=== PATIENT | female | born 1985 | race Caucasian/White ===

== ENCOUNTER 2021-02-15 22:18 | Outpatient (REF) | payer BC, SELFPAY ==
[2021-02-17 11:37] LABS: COVID-19 RT-PCR UVMMC Result Negative (Negative)
== END 2021-02-15 22:19 | disposition home or self-care (01) ==
LOC: LBN 22:18
PROVIDERS: PCP Nurse Practitioner Adult Health; Visit Provider Physician Assistant Medical
DX: J02.9 Acute pharyngitis, unspecified (principal); Z20.822 Contact with and (suspected) exposure to COVID-19; J06.9 Acute upper respiratory infection, unspecified
CPT/HCPCS: U0003; 87070

== ENCOUNTER 2021-08-10 14:19 | Outpatient (REF) | payer BC, SELFPAY | END 2021-08-10 14:20 | disposition home or self-care (01) | LOC: NCHCN 14:19 | PROVIDERS: PCP Nurse Practitioner Adult Health; Visit Provider Nurse Practitioner Family | DX: R30.0 Dysuria (principal) | CPT/HCPCS: 87086 ==

== ENCOUNTER 2023-11-24 17:08 | Emergency (ER) | payer OTHER, SELFPAY ==
[2023-11-24 17:19] VITALS: BP 130/87; PULSE 79; RESP 17; TEMP 37.1; O2SAT 99
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
[2023-11-24] MEDS: Ibuprofen 600 MG TAB PO (18:17)
[2023-11-24] MEDS: Acetaminophen 500 MG TAB 1000 MG PO (18:17)
[2023-11-24] MEDS: Tetracaine 0.5% 4 ML BTL (18:18)
[2023-11-24 18:22] VITALS: PULSE 80; RESP 16; O2SAT 98
== END 2023-11-24 18:29 | disposition home or self-care (01) ==
LOC: ER 18:14
PROVIDERS: Emergency Provider Emergency Medicine
DX: M25.561 Pain in right knee (principal); M25.511 Pain in right shoulder; R51.9 Headache, unspecified; R11.0 Nausea; H57.11 Ocular pain, right eye; V48.5XXA Car driver injured in noncollision transport accident in traffic accident, initial encounter
CPT/HCPCS: 76604; 99282; 99283

== ENCOUNTER 2024-06-03 12:26 | Outpatient (REF) | payer BC, SELFPAY ==
[2024-06-03 15:38] LABS: Abs Immature Grans 0.03 10^3/uL (0.0-0.06); Absolute Basophil Count 0.05 10^3/uL (0.0-0.2); Absolute Eosinophil Count 0.19 10^3/uL (0.0-0.7); Absolute Lymphocyte Count 2.58 10^3/uL (1.2-3.4); Absolute Monocyte Count 0.43 10^3/uL (0.1-0.8); Absolute Neutrophil Count 4.21 10^3/uL (1.2-6.7); Basophils % 0.7 %; Eosinophils % 2.5 %; HGB 13.7 g/dL (11.2-15.7); Immature Grans % 0.4 %; Lymphocytes % 34.4 %; MCH 32.9 pg (27.0-33.0); MCHC 34.3 % (32.0-36.0); MCV 96 fL (80-95); MPV 10.2 fL (8.0-11.0); Monocytes % 5.7 %; Neutrophils % 56.3 %; Platelet Count 260 10^3/uL (130-400); RBC 4.17 10^6/uL (3.93-5.22); RDW 11.8 % (11.7-14.6); RDW-SD 41.3 fL; WBC 7.49 10^3/uL (4.4-10.8)
[2024-06-03 17:03] LABS: ALT 16 U/L (14-59); AST 11 U/L (15-37); Albumin 4.1 g/dL (3.4-5.0); Alkaline Phosphatase 65 U/L (46-116); Anion Gap 6.8 mmol/L (3-11); BUN 16 mg/dL (7-18); Bilirubin, Total 0.34 mg/dL (0.2-1.0); CO2 29.2 mmol/L (21.0-32.0); CREATININE 0.7 mg/dL (0.55-1.02); Calcium 9.7 mg/dL (8.5-10.1); Chloride 107 mmol/L (98-107); Estimated GFR 114.16 (mL/min/1.73m2); Glucose 83 mg/dL (74-106); Potassium 4.3 mmol/L (3.5-5.1); Sodium 143 mmol/L (136-145); TSH (W/Ref FT4) 2.14 uIU/mL (0.36-3.74)
== END 2024-06-03 12:27 | disposition home or self-care (01) ==
LOC: NCHCN 12:26
PROVIDERS: PCP Student in an Organized Health Care Education/Training Program; Visit Provider Student in an Organized Health Care Education/Training Program
DX: F41.9 Anxiety disorder, unspecified (principal)
CPT/HCPCS: 80053; 84443; 85025